=== PATIENT | female | born 1985 | race Two or more races ===

== ENCOUNTER 2016-11-04 15:03 | Emergency (ER) | payer OTHER ==
[~2016-11-04 15:03] MED LIST: HYDR5SYP10 PO; PRED-503 PO; VENTAER INH
[2016-11-04 15:05] VITALS: BP 141/87; PULSE 77; RESP 14; TEMP 98.6; O2SAT 99
--- NOTE | 2016-11-04 15:45 | PD ---
Physical Exam Date Seen by Provider: Nov 04, 2016 Time Seen by Provider: 15:42 Data Data Last Documented VS Vital Signs Date Time Temp Pulse Resp B/P Pulse Ox O2 Delivery O2 Flow Rate FiO2 11/04/16 15:05 98.6 77 14 141/87 99 MDM Supervised Visit with DONAL: No Narrative Course 31 YO F with complaint of bilateral lower back pain radiating to the abdomen x 2 days. Denies acute injury. --N/V/D. Denies urinary symptoms. History of kidney stones. [facility] 10/29 Vitals reviewed. Patient seen in triage. Awaiting bed placement. Yi Osborne Nov 04, 2016 15:45
--- NOTE | 2016-11-04 17:53 | PD ---
HPI Chief Complaint: Back/ Neck Pain or Injury Time Seen by Provider: 17:52 Travel History International Travel<30 days: No Contact w/Intl Traveler<30days: No Traveled to known affect area: No History of Present Illness HPI 31-year-old female came to the emergency room with history of lower and mid back pain. Patient says this has been going on for past 2 days. This morning when she woke up she was in excruciating pain. She went to the urgent care and she was referred to the emergency room. Patient says she's never had pain like this before. She points to the lower back and says it goes up into her middle back and then wraps around bilaterally to come to the front of her body at the xiphoid process. No history of vomiting. No history of chest pain per se. The pain in her xiphoid process is more radiational from the back it sounds like. Vital signs were stable in triage. Currently she was standing and watching television when I arrived in the room and then comfortably walked back to the stretcher when I asked her to sit down. Patient has history of kidney stones but says this kind of pain is new for her. No history of fall or trauma or any other sentinel event. No aggravating or relieving factors that she has identified. [facility] Past Medical History Narrative Medical List of her past medical, surgical, social and family history was reviewed from the nursing note. Asthma: Yes Cancer: No Diabetes: No Diminished Hearing: No Hepatitis: No Hiatal Hernia: No Respiratory: Yes (ASTHMA) Thyroid Disease: No ?: Not LMP: 10/29/16 Menopausal: No : 3 Para: 3 Tubal Ligation: Yes Past Surgical History Gynecologic Surgery: Yes (tubaligation) Other Surgery: Yes (BREAST AUGMENTATION) Social History Alcohol Use: No Tobacco Use: Yes (1/2 ppd) Substance Use: Yes (marijuana every night to sleep) Allergies-Medications (Allergen,Severity, Reaction): Coded Allergies: Iodine (Verified Allergy, Severe, Itching, 11/04/16) Seafood (Verified Allergy, Severe, Anaphylaxis, 11/04/16) Comments List of her allergies reviewed from the nursing note. Reported Meds & Prescriptions Reported Meds & Active Scripts Active Flexeril (Cyclobenzaprine HCl) 5 Mg Tab 5 Mg PO TID Ibuprofen 600 Mg Tab 600 Mg PO Q6H PRN Ventolin Hfa 18 GM Inh (Albuterol Sulfate) 90 Mcg/Act Aer 2 Puff INH Q4-6H PRN Narrative Medication List of her home medications reviewed from the nursing note. Review of Systems Except as stated in HPI: all other systems reviewed are Neg Physical Exam Narrative GENERAL: Awake, alert, no obvious distress SKIN: Focused skin assessment warm/dry. HEAD: Atraumatic. Normocephalic. EYES: Pupils equal and round. No scleral icterus. No injection or drainage. ENT: No nasal bleeding or discharge. Mucous membranes pink and moist. NECK: Trachea midline. No JVD. CARDIOVASCULAR: Regular rate and rhythm. No murmur appreciated. RESPIRATORY: No accessory muscle use. Clear to auscultation. Breath sounds equal bilaterally. GASTROINTESTINAL: Abdomen soft, non-tender, nondistended. Hepatic and splenic margins not palpable. MUSCULOSKELETAL: No obvious deformities. No clubbing. No cyanosis. No edema. Paraspinal muscle spasm NEUROLOGICAL: Awake and alert. No obvious cranial nerve deficits. Motor grossly within normal limits. Normal speech. PSYCHIATRIC: Appropriate mood and affect; insight and judgment normal. Data Data Last Documented VS Orders Hydromorphone Pf Inj (Dilaudid Pf Inj) (11/04/16 18:00) Ketorolac Inj (Toradol Inj) (11/04/16 18:00) Orphenadrine Inj (Norflex Inj) (11/04/16 18:00) [facility] Medical Decision Making Medical Screen Exam Complete: Yes Emergency Medical Condition: Yes Medical Record Reviewed: Yes Differential Diagnosis Lumbar radiculopathy, thoracic radiculopathy, back pain NOS Narrative Course 6:09 PM given the fact that there is no bowel bladder incontinence, no traumatic event, no fever or chills and vital signs stable by a.m. treating this medically without any radiology tests. I have asked the patient to follow up with her primary care. She may need an outpatient MRI ordered by her primary care. I've asked the patient to call her who can come and pick her up since of medications she is getting would make her groggy. 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 She asked me to give her 2 days work note which I think is reasonable. Procedures EKG Prior to Arrival: No Diagnosis Primary Impression: Back pain Qualified Code: M54.6 - Acute bilateral thoracic back pain Additional Impression: Thoracic radiculopathy Referrals: Primary Care Physician Departure Forms: Tests/Procedures, Work Release Enter return to work date: Nov 07, 2016 Additional Instructions: Take the medications as per the prescription direction. Do not drive or operate heavy machinery while on the muscle relaxant since it will make you groggy. Follow-up with your primary care. You may require an outpatient MRI that can be ordered by your primary care. Return to the ER if the condition worsens or any other new concerns. Get bedrest on firm surface. Med/Other Pt SpecificInfo: Prescription(s) given Scripts Cyclobenzaprine (Flexeril)5 Mg Tab5 Mg PO TID #21 TAB Ref 0 Prov:Maxine Medina MD 11/04/16 Ibuprofen 600 Mg Wax551 Mg PO Q6H PRN (Pain/Inflammation) #40 TAB Ref 0 Prov:Maxine Medina MD 11/04/16 Disposition: 01 DISCHARGE HOME Condition: Stable Maxine Medina MD Nov 04, 2016 17:53 Prov:Maxine Medina MD 11/04/16 Disposition: 01 DISCHARGE HOME Condition: Maxine Mueller MD Nov 04, 2016 17:53
[2016-11-04] MEDS ORDERED: HYDROmorphone HCL PF 1 MG/ML VIAL IM ONE (18:00)
[2016-11-04] MEDS ORDERED: ORPHENADRINE INJ 60 MG/2 ML AMP IM ONE (18:00)
[2016-11-04] MEDS ORDERED: KETOROLAC TROMETHAMINE 60 MG/2 ML (IM) VIAL IM ONE (18:00)
[2016-11-04] MEDS ORDERED: IBUP-232 PO (18:19)
[2016-11-04] MEDS ORDERED: CYCL5TAB PO (18:19)
== END 2016-11-04 19:07 | disposition home or self-care (01) ==
LOC: NEPD 15:03
DX: M54.14 Radiculopathy, thoracic region (principal); J45.909 Unspecified asthma, uncomplicated; F17.210 Nicotine dependence, cigarettes, uncomplicated
CPT/HCPCS: 96372; 99284; J1170; J1885; J2360

== ENCOUNTER 2017-07-29 21:03 | Emergency (ER) | payer OTHER ==
[~2017-07-29] VITALS: Ht 162.6 cm; Wt 72.0 kg
[~2017-07-29 21:03] MED LIST changes: +CYCL5TAB PO; -HYDR5SYP10 PO; +IBUP-232 PO; -PRED-503 PO
[2017-07-29 21:38] VITALS: BP 132/62; PULSE 82; RESP 18; TEMP 98.9; O2SAT 98
[2017-07-30] MEDS ORDERED: CYCL10TA PO (02:24)
== END 2017-07-29 22:25 | disposition left against medical advice (07) ==
LOC: NED 21:03
DX: M54.2 Cervicalgia (principal); R51 Headache; M54.5 Low back pain; V89.2XXA Person injured in unspecified motor-vehicle accident, traffic, initial encounter; Y92.481 Parking lot as the place of occurrence of the external cause; Z53.21 Procedure and treatment not carried out due to patient leaving prior to being seen by health care provider
CPT/HCPCS: 99281

== ENCOUNTER 2017-07-29 22:50 | Emergency (ER) | payer OTHER ==
[~2017-07-29] VITALS: Ht 162.6 cm; Wt 74.0 kg
[2017-07-29 23:08] VITALS: BP 125/81; PULSE 74; RESP 16; TEMP 98.5; O2SAT 100
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
[2017-07-30 00:56] LABS: BILIRUBIN, URINE NEG (NEG); BLOOD, URINE TRACE (NEG); GLUCOSE,URINE NEG (NEG); KETONE, URINE NEG (NEG); NITRITE,URINE NEG (NEG); URINE COLOR YELLOW (YELLW/STRAW); URINE LEUKOCYTE ESTERASE NEG (NEG)
[2017-07-30] MEDS ORDERED: KETOROLAC TROMETHAMINE 60 MG/2 ML (IM) VIAL IM ONE (01:00)
[2017-07-30] MEDS ORDERED: ORPHENADRINE INJ 60 MG/2 ML AMP IM ONE (01:00)
[2017-07-30] MEDS ORDERED: PROCHLORPERAZINE MALEATE 5 MG TAB PO ONE (01:00)
[2017-07-30] MEDS ORDERED: diphenhydrAMINE HCL 25 MG CAP PO ONE (01:00)
[2017-07-30 01:13] LABS: SQUAMOUS EPITHELIAL CELL URINE 0-5 /hpf (0-5); WBC, URINE 0-2 /hpf (0-5)
[2017-07-30] MEDS ORDERED: CYCL10TA PO (02:24)
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
== END 2017-07-30 02:56 | disposition home or self-care (01) ==
LOC: PHED 22:50
DX: S16.1XXA Strain of muscle, fascia and tendon at neck level, initial encounter (principal); R51 Headache; R30.0 Dysuria; J45.909 Unspecified asthma, uncomplicated; V49.69XA Unspecified car occupant injured in collision with other motor vehicles in traffic accident, initial encounter
CPT/HCPCS: 70450; 81001; 96372; 99285; J1885; J2360; Q0164

== ENCOUNTER 2017-09-23 19:32 | Emergency (ER) | payer OTHER ==
[~2017-09-23] VITALS: Ht 162.6 cm; Wt 70.0 kg
[~2017-09-23 19:32] MED LIST changes: +CYCL10TA PO; -CYCL5TAB PO; -IBUP-232 PO
[2017-09-23 19:45] VITALS: BP 135/59; PULSE 95; RESP 18; TEMP 98.5; O2SAT 98
[2017-09-23 20:31] LABS: AMORPHOUS SEDIMENT, URINE RARE; BILIRUBIN, URINE NEG (NEG); BLOOD, URINE SMALL (NEG); CALCIUM OXALATE CRYSTALS,URINE MANY /hpf; GLUCOSE,URINE NEG (NEG); KETONE, URINE NEG (NEG); MUCUS URINE FEW /lpf (OCC); NITRITE,URINE NEG (NEG); PH, URINE 5.5 (5.0-8.5); SQUAMOUS EPITHELIAL CELL URINE 4 /hpf (0-5); URINE COLOR YELLOW (YELLW/STRAW); URINE LEUKOCYTE ESTERASE NEG (NEG)
--- NOTE | 2017-09-23 21:40 | PD ---
HPI Chief Complaint: Abdominal Pain Time Seen by Provider: 21:07 Travel History International Travel<30 days: No Contact w/Intl Traveler<30days: No Traveled to known affect area: No History of Present Illness HPI 32yo F with no significant PMH presents to the ED with c/o abdominal pain for a few days. Pain is epigastric and left sided. Said when she buttons her pants, it radiates up from left lower abdomen to epigastric region. +Nausea and vomiting. Pain is sharp, constant. Denies any fever, chest pain, sob, dysuria , hematuria, vaginal bleeding or discharge. Said she went to her [employer] recently and everything is fine. Pt had tubal ligation and is insistent on test from blood. PFSH Past Medical History Anemia: Yes Asthma: Yes Cancer: No Cardiovascular Problems: No Diabetes: No Diminished Hearing: No Hepatitis: No Hiatal Hernia: No Hypertension: No Respiratory: Yes (ASTHMA) Immunizations Current: Yes Thyroid Disease: No ?: Unknown LMP: 08/15/17 Menopausal: No : 5 Para: 3 Miscarriage: 2 Tubal Ligation: Yes Past Surgical History Gynecologic Surgery: Yes (tubaligation) Other Surgery: Yes (BREAST AUGMENTATION) Social History Alcohol Use: No Tobacco Use: Yes (5 CIGS DAILY) Substance Use: No (denies) Allergies-Medications (Allergen,Severity, Reaction): Coded Allergies: Fish Containing Products (Unverified Allergy, Severe, Anaphylaxis, 09/23/17 ) iodine (Unverified Allergy, Severe, Itching, 09/23/17) potassium iodide (Unverified Allergy, Severe, Itching, 09/23/17) povidone-iodine (Unverified Allergy, Severe, Itching, 09/23/17) sodium iodide (Unverified Allergy, Severe, Itching, 09/23/17) sodium iodide (Unverified Allergy, Severe, Itching, 09/23/17) Reported Meds & Prescriptions Reported Meds & Active Scripts Active Tylenol (Acetaminophen) 325 Mg Tab 650 Mg PO Q6H PRN Flexeril (Cyclobenzaprine HCl) 10 Mg Tab 10 Mg PO TID Ventolin Hfa 18 GM Inh (Albuterol Sulfate) 90 Mcg/Act Aer 2 Puff INH Q4-6H PRN Review of Systems Except as stated in HPI: all other systems reviewed are Neg Physical Exam Narrative GENERAL: 32yo F not in distress. SKIN: Focused skin assessment warm/dry. HEAD: Atraumatic. Normocephalic. CARDIOVASCULAR: Regular rate and rhythm. No murmur appreciated. RESPIRATORY: No accessory muscle use. Clear to auscultation. Breath sounds equal bilaterally. GASTROINTESTINAL: Abdomen soft, mild epigastric ttp, mild suprapubic ttp. No rebound tenderness or guarding. PELVIC: Pt had just been to [employer] and does not want a pelvic exam. BACK: No CVA tenderness bilaterally. MUSCULOSKELETAL: No obvious deformities. No clubbing. No cyanosis. No edema. NEUROLOGICAL: Awake and alert. No obvious cranial nerve deficits. Motor grossly within normal limits. Normal speech. PSYCHIATRIC: Appropriate mood and affect; insight and judgment normal. Data Data Last Documented VS Vital Signs Date Time Temp Pulse Resp B/P (MAP) Pulse Ox O2 Delivery O2 Flow Rate FiO2 09/23/17 19:45 98.5 95 18 135/59 (84) 98 Orders Orders Complete Blood Count With Diff (09/23/17 19:49) Comprehensive Metabolic Panel (09/23/17 19:49) Urinalysis - C+S If Indicated (09/23/17 19:49) Ed Urine Pregnancytest Poc (09/23/17 19:49) Iv Access Insert/Monitor (09/23/17 19:49) Oxygen Administration (09/23/17 19:49) Oximetry (09/23/17 19:49) Lipase (09/23/17 19:49) Bhcg Screen Qualitative (09/23/17 21:21) Ketorolac Inj (Toradol Inj) (09/23/17 23:00) Ct Abd/Pel W/O Iv Contrast (09/23/17 ) Ed Discharge Order (09/23/17 23:53) Labs Laboratory Tests Test 09/23/17 19:55 09/23/17 21:27 Urine Color YELLOW Urine Turbidity HAZY Urine pH 5.5 Urine Specific [place] 1.031 Urine Protein TRACE mg/dL Urine Glucose (UA) NEG mg/dL Urine Ketones NEG mg/dL Urine Occult Blood SMALL Urine Nitrite NEG Urine Bilirubin NEG Urine Urobilinogen 2.0 MG/DL Urine Leukocyte Esterase NEG Urine RBC 12 /hpf Urine WBC 2 /hpf Urine Squamous Epithelial Cells 4 /hpf Urine Calcium Oxalate Crystals MANY /hpf Urine Amorphous Sediment RARE Urine Mucus FEW /lpf Microscopic Urinalysis Comment CULT NOT INDICATED White Blood Count 7.1 TH/MM3 Red Blood Count 4.38 MIL/MM3 Hemoglobin 13.6 GM/DL Hematocrit 40.1 % Mean Corpuscular Volume 91.6 FL Mean Corpuscular Hemoglobin 31.1 PG Mean Corpuscular Hemoglobin Concent 33.9 % Red Cell Distribution Width 14.1 % Platelet Count 187 TH/MM3 Mean Platelet Volume 10.1 FL Neutrophils (%) (Auto) 45.2 % Lymphocytes (%) (Auto) 42.0 % Monocytes (%) (Auto) 10.9 % Eosinophils (%) (Auto) 1.3 % Basophils (%) (Auto) 0.6 % Neutrophils # (Auto) 3.2 TH/MM3 Lymphocytes # (Auto) 3.0 TH/MM3 Monocytes # (Auto) 0.8 TH/MM3 Eosinophils # (Auto) 0.1 TH/MM3 Basophils # (Auto) 0.0 TH/MM3 CBC Comment DIFF FINAL Differential Comment Blood Urea Nitrogen 13 MG/DL Creatinine 0.55 MG/DL Random Glucose 91 MG/DL Total Protein 7.3 GM/DL Albumin 3.7 GM/DL Calcium Level 8.7 MG/DL Alkaline Phosphatase 101 U/L Aspartate Amino Transf (AST/SGOT) 12 U/L Alanine Aminotransferase (ALT/SGPT) 25 U/L Total Bilirubin 0.2 MG/DL Sodium Level 140 MEQ/L Potassium Level 3.8 MEQ/L Chloride Level 105 MEQ/L Carbon Dioxide Level 27.3 MEQ/L Anion Gap 8 MEQ/L Estimat Glomerular Filtration Rate 155 ML/MIN Lipase 116 U/L Beta HCG, Qualitative LESS THAN 1 MIU/ML [facility] Medical Decision Making Medical Screen Exam Complete: Yes Emergency Medical Condition: Yes Differential Diagnosis Nephrolithiasis vs. colitis vs. musculoskeletal pain Narrative Course 32yo F who is very well appearing here with abdominal pain. Labs reviewed, no leukocytosis. H/H normal. negative. CMP unremarkable. Lipase normal. UA showed RBC 12. Many calcium oxalate crystal. CT a/p showed punctate nonobstructing right renal calculus. Cholethiasis. 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 Follow up outpatient MRI recommended. Pt given toradol. Pt given copy of CT result and understands to follow up with this. Pt has been lying comfortably but extremely rude to staff including her nurse. Pt wanted to file a complaint against her nurse and charge nurse was called for that. Diagnosis Primary Impression: Abdominal pain Qualified Codes: R10.9 - Unspecified abdominal pain Patient Instructions: General Instructions Departure Forms: Tests/Procedures Additional Instructions: CT a/p showed left adrenal mass probable lipid poor adenoma, please follow up with MRI as outpatient to further evaluate this. Return to the ED if symptoms worsen. Med/Other Pt SpecificInfo: Prescription(s) given Scripts Acetaminophen (Tylenol) 325 Mg Tab 650 MG PO Q6H Y for PAIN SCALE 1 TO 4, #20 TAB 0 Refills Prov: Jessica Romo DO 09/24/17 Disposition: 01 DISCHARGE HOME Condition: Stable Jessica Romo DO September 23, 2017 21:40
[2017-09-23 22:09] LABS: AUTOMATED NEUTROPHIL # 3.2 TH/MM3 (1.8-7.7); BASOPHIL % 0.6 % (0.0-2.0); EOSINOPHIL # 0.1 TH/MM3 (0-0.4); EOSINOPHIL % 1.3 % (0.0-4.0); HEMATOCRIT 40.1 % (35.0-46.0); HEMOGLOBIN 13.6 GM/DL (11.6-15.3); MEAN CELL VOLUME 91.6 FL (80.0-100.0); MEAN CORPUSCULAR HEMOGLOBIN 31.1 PG (27.0-34.0); MEAN CORPUSCULAR HGB CONC 33.9 % (32.0-36.0); MEAN PLATELET VOLUME 10.1 FL (7.0-11.0); MONO % 10.9 % (0.0-8.0); MONOCYTE # 0.8 TH/MM3 (0-0.9); NEUT % 45.2 % (16.0-70.0); PLATELET COUNT 187 TH/MM3 (150-450); RED BLOOD COUNT 4.38 MIL/MM3 (4.00-5.30); RED CELL DISTRIBUTION WIDTH 14.1 % (11.6-17.2); WHITE BLOOD COUNT 7.1 TH/MM3 (4.0-11.0)
[2017-09-23] MEDS ORDERED: KETOROLAC TROMETHAMINE 30 MG/ML (IVP) VIAL IV PUSH ONE (23:00)
[2017-09-23 23:24] LABS: ALBUMIN 3.7 GM/DL (3.4-5.0); ALT (GPT) 25 U/L (10-53); AST (GOT) 12 U/L (15-37); BICARBONATE 27.3 MEQ/L (21.0-32.0); BLOOD UREA NITROGEN 13 MG/DL (7-18); CALCIUM 8.7 MG/DL (8.5-10.1); CHLORIDE 105 MEQ/L (98-107); CREATININE 0.55 MG/DL (0.50-1.00); GLOMERULAR FILTRATION RATE 155 ML/MIN (>89); GLUCOSE,RANDOM 91 MG/DL (74-106); SODIUM (NA) 140 MEQ/L (136-145)
[2017-09-23 23:26] LABS: ALKALINE PHOSPHATASE 101 U/L (45-117); TOTAL BILIRUBIN ADULT 0.2 MG/DL (0.2-1.0); TOTAL PROTEIN 7.3 GM/DL (6.4-8.2)
--- NOTE | 2017-09-23 23:40 | RADRPT ---
EXAM DATE/TIME: 09/23/2017 23:18 [facility] COMPARISON: No previous studies available for comparison. INDICATIONS : Abdomen pain with nausea and vomiting. ORAL CONTRAST: No oral contrast ingested. RADIATION DOSE: 8.23 CTDIvol (mGy) MEDICAL HISTORY : None SURGICAL HISTORY : Tubal ligation. ENCOUNTER: Initial ACUITY: 1 day PAIN SCALE: 7/10 LOCATION: Bilateral abdomen TECHNIQUE: Volumetric scanning of the abdomen and pelvis was performed. Using automated exposure control and ad justment of the mA and/or kV according to patient size, radiation dose was kept as low as reasonably achievable to obtain optimal diagnostic quality images. DICOM format image data is available electro nically for review and comparison. FINDINGS: LOWER LUNGS: The visualized lower lungs are clear. LIVER: Homogeneous density without lesion. There is no dilation of the biliary tree. There are calcified ga llstones. SPLEEN: Normal size without lesion. PANCREAS: Within normal limits. KIDNEYS: Normal in size and shape. There is no mass, stone, or hydronephrosis on the left. 3 mm calculus uppe r pole right kidney. ADRENAL GLANDS: Right adrenal gland normal. Left adrenal mass measures 2.9 x 3.6 cm. VASCULAR: There is no aortic aneurysm. BOWEL/MESENTERY: The stomach, small bowel, and colon demonstrate no acute abnormality. There is no free intraperitone al air or fluid. ABDOMINAL WALL: Within normal limits. RETROPERITONEUM: There is no lymphadenopathy. BLADDER: No wall thickening or mass. REPRODUCTIVE: Within normal limits. INGUINAL: There is no lymphadenopathy or hernia. MUSCULOSKELETAL: Within normal limits for patient age. CONCLUSION: 1. Punctate nonobstructing right renal calculus. 2. Cholelithiasis. 3. 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 Followup outpatient MRI recommended. Abdelrahman Salmeron MD on September 23, 2017 at 23:36 Board Certified Radiologist. This report was verified electronically.
[2017-09-24] MEDS ORDERED: TYLE325T PO (00:01)
== END 2017-09-24 00:12 | disposition home or self-care (01) ==
LOC: NEPD 19:32
DX: N20.0 Calculus of kidney (principal); K80.20 Calculus of gallbladder without cholecystitis without obstruction; D64.9 Anemia, unspecified; J45.909 Unspecified asthma, uncomplicated; F17.210 Nicotine dependence, cigarettes, uncomplicated; Z79.51 Long term (current) use of inhaled steroids; Z88.8 Allergy status to other drugs, medicaments and biological substances
CPT/HCPCS: 74176; 80053; 81001; 83690; 84703; 85025